=== PATIENT | female | born 1950 | race Caucasian/White ===

== ENCOUNTER 2022-10-06 16:40 | Emergency (ER) | payer MEDICARE ==
[~2022-10-06] VITALS: Ht 167.6 cm; Wt 86.2 kg
[2022-10-06 16:45] VITALS: BP_SYST 130
[2022-10-06] MEDS ORDERED: NIRM1TAB PO (20:56)
[2022-10-06] MEDS ORDERED: PRED20TA PO (20:56)
[2022-10-06 23:18] VITALS: BP_SYST 135
== END 2022-10-06 23:18 | disposition home or self-care (01) ==
LOC: SED 16:40
DX: U07.1 COVID-19 (principal); R05.9 Cough, unspecified; I10 Essential (primary) hypertension; Z88.0 Allergy status to penicillin; Z88.2 Allergy status to sulfonamides; Z79.899 Other long term (current) drug therapy
CPT/HCPCS: 36415; 71045; 99284